=== PATIENT | male | born 1955 ===

== ENCOUNTER 2024-06-17 06:01 | Day surgery (SDC) | payer OTHER, SELFPAY ==
[2024-06-17] VITALS (9 sets, daily range): BP systolic 105–150; BP diastolic 77–95; BMI 29.9
[2024-06-17] MEDS: CELEBREX 200 MG PO (06:35)
[2024-06-17] MEDS: TYLENOL 1000 MG PO (06:35)
[2024-06-17] MEDS: NORMOSOL-R/PLASMALYTE-A 1000 IV (06:35)
[2024-06-17] MEDS: ZOFRAN 4 MG IV (10:02)
[2024-06-17] MEDS: ANCEF 5 IV (11:27)
== END 2024-06-17 11:53 | disposition home or self-care (01) ==
LOC: SDS 06:01
PROVIDERS: ATTENDING PHYSICIAN Orthopaedic Surgery Hand Surgery
DX: M19.011 Primary osteoarthritis, right shoulder (principal)
CPT/HCPCS: 23472; 73020; C1713; C1776